=== PATIENT | female | born 1990 | race Caucasian/White ===

== ENCOUNTER 2016-12-14 16:22 | Emergency (ER) | payer BC | END 2016-12-14 18:45 | disposition home or self-care (01) | LOC: ER1 16:22 | DX: N91.0 Primary amenorrhea (principal); F17.210 Nicotine dependence, cigarettes, uncomplicated; Z88.2 Allergy status to sulfonamides; Z91.040 Latex allergy status | CPT/HCPCS: 84702; 99283 ==